=== PATIENT | female | born 1965 | race Two or more races ===

== ENCOUNTER 2016-07-04 20:29 | Inpatient (IN) | payer MEDICAID ==
[~2016-07-04] VITALS: Ht 154.9 cm; Wt 104.2 kg
[~2016-07-04 20:29] MED LIST: ENAL-3; LEVO100T8; METFORMIN 850 MG
[2016-07-04 21:34] LABS: Basophils # (auto) 0.1 uL; Basophils % (auto) 0.4 % (0.0-2.0); DEFINITIVE VIEW TRANSMISSION; Eosinophils # (auto) 0 uL; Eosinophils % (auto) 0.3 % (0.0-7.0); Hematocrit 44.1 % (36.0-46.0); Hemoglobin 13.9 g/dL (12.2-16.2); Lymphocytes # (auto) 1.6 uL; Lymphocytes % (auto) 11.1 % (10.0-50.0); Mean Corpuscular Hemoglobin 25.7 pg (28.0-32.0); Mean Corpuscular Hgb Conc. 31.6 g/dL (32.0-36.0); Mean Corpuscular Volume 81.5 fL (80.0-100.0); Mean Platelet Volume 9.3 fL (7.4-10.4); Monocytes # (auto) 0.5 uL; Monocytes % (auto) 3.5 % (0.0-12.0); Neutrophils # (auto) 12.2 uL; Neutrophils % (auto) 84.7 % (37.0-80.0); Platelet Count (auto) 306 10^3/uL (140-450); Red Cell Distribution Width 14.9 % (11.6-16.0); White Blood Cell 14.4 10^3/uL (4.4-10.8)
[2016-07-04 21:54] LABS: Albumin 3.8 g/dL (3.4-5.0)
[2016-07-04 21:57] LABS: Bilirubin, Total 0.2 mg/dL (0.2-1.0); Total Protein 8.7 g/dL (6.4-8.2)
[2016-07-04 22:13] LABS: Urine Bilirubin Negative (Negative); Urine Blood Negative /uL (Negative); Urine Color Yellow (Yellow); Urine Nitrite Negative (Negative); Urine RBC 3 /hpf (0 - 4); Urine Squamous Epithelial Cell FEW /hpf (<5); Urine Urobilinogen Normal (Negative)
[2016-07-04 22:14] LABS: Urine Glucose 4+ mg/dL (Normal); Urine Ketone 2+ (Negative)
[2016-07-05] MEDS ORDERED: ONDANSETRON HCL 4 MG/2 ML VIAL IV PRN (06:45)
[2016-07-05] MEDS ORDERED: ACETAMINOPHEN 325 MG TAB PO PRN (06:45)
[2016-07-05] MEDS ORDERED: DEXTROSE (50%) 50ML SYRG IV PRN (06:45)
[2016-07-05] MEDS ORDERED: MORPHINE SULF INJ 2 MG/ML SYRINGE 1ML IV PRN (06:45)
[2016-07-05] MEDS ORDERED: GASTROGRAFIN 120 ML SOL ONE (06:50)
[2016-07-05] MEDS: SODIUM CHLORIDE 0.9% 1,000 ML IV SCH ×2 (07:11→16:38)
[2016-07-05] MEDS ORDERED: ENOXAPARIN SOD 30 MG/0.3 ML SYRINGE SC SCH (10:00)
[2016-07-05] MEDS ORDERED: ENALAPRIL MALEATE 10 MG TAB PO SCH (10:00)
[2016-07-05] MEDS: LEVOTHYROXINE SODIUM 50 MCG TAB PO SCH (10:27)
[2016-07-05] MEDS: ENOXAPARIN SOD 40 MG/0.4 ML SYRINGE SC SCH (10:27)
[2016-07-05] MEDS: cefTRIAXone 1GM/50ML D5W 50 ML IV SCH (10:27)
[2016-07-05] MEDS: PANTOPRAZOLE SODIUM 40 MG/10 ML VIAL IV SCH (10:27)
[2016-07-05] MEDS: HYDROcodone-ACET 5/325MG TAB PO PRN ×2 (11:31→22:15)
[2016-07-05] MEDS: ACCU-CHEK COMFORT CURVE STRIP VI SCH ×3 (12:17→23:44)
[2016-07-05] MEDS: InsuLIN REG 1unit/0.01ml Soln (100units/ml) SC SCH ×3 (12:44→23:47)
[2016-07-05 13:16] VITALS: BP 158/87
[2016-07-05 16:52] VITALS: BP 161/87
[2016-07-05] MEDS: METOPROLOL TARTRATE 25 MG TAB PO SCH ×2 (18:57→22:15)
[2016-07-05] MEDS ORDERED: ENALAPRIL MALEATE 2.5 MG TAB PO SCH (19:00)
[2016-07-05 21:02] VITALS: BP 159/75
[2016-07-06] MEDS: SODIUM CHLORIDE 0.9% 1,000 ML IV SCH ×3 (02:32→23:52)
[2016-07-06 05:30] VITALS: BP 134/73
[2016-07-06] MEDS: ACCU-CHEK COMFORT CURVE STRIP VI SCH ×4 (05:40→23:51)
[2016-07-06] MEDS: InsuLIN REG 1unit/0.01ml Soln (100units/ml) SC SCH ×4 (05:42→23:39)
[2016-07-06 06:10] LABS: Basophils # (auto) 0 uL; Basophils % (auto) 0.3 % (0.0-2.0); DEFINITIVE VIEW TRANSMISSION; Eosinophils # (auto) 0.1 uL; Eosinophils % (auto) 1.3 % (0.0-7.0); Hematocrit 37.1 % (36.0-46.0); Hemoglobin 11.5 g/dL (12.2-16.2); Lymphocytes # (auto) 2.1 uL; Lymphocytes % (auto) 27.3 % (10.0-50.0); Mean Corpuscular Hemoglobin 25.3 pg (28.0-32.0); Mean Corpuscular Hgb Conc. 30.9 g/dL (32.0-36.0); Mean Corpuscular Volume 81.8 fL (80.0-100.0); Mean Platelet Volume 9.1 fL (7.4-10.4); Monocytes # (auto) 0.6 uL; Monocytes % (auto) 8.1 % (0.0-12.0); Neutrophils # (auto) 4.8 uL; Platelet Count (auto) 285 10^3/uL (140-450); Red Cell Distribution Width 15.1 % (11.6-16.0); White Blood Cell 7.7 10^3/uL (4.4-10.8)
[2016-07-06] MEDS: LEVOTHYROXINE SODIUM 50 MCG TAB PO SCH (06:25)
[2016-07-06 06:41] LABS: Potassium 3.2 mmol/L (3.5-5.1)
[2016-07-06 07:04] LABS: Albumin 2.9 g/dL (3.4-5.0); BUN/Creatinine Ratio 54.1; Bilirubin, Total 0.3 mg/dL (0.2-1.0); Calcium 7.5 mg/dL (8.5-10.1); Total Protein 6.8 g/dL (6.4-8.2)
[2016-07-06 08:48] VITALS: BP 152/67
[2016-07-06] MEDS: ENOXAPARIN SOD 40 MG/0.4 ML SYRINGE SC SCH (10:28)
[2016-07-06] MEDS: METOPROLOL TARTRATE 25 MG TAB PO SCH ×2 (10:28→21:42)
[2016-07-06] MEDS: ENALAPRIL MALEATE 10 MG TAB PO SCH (10:28)
[2016-07-06] MEDS: PANTOPRAZOLE SODIUM 40 MG/10 ML VIAL IV SCH (10:29)
[2016-07-06] MEDS: cefTRIAXone 1GM/50ML D5W 50 ML IV SCH (10:29)
[2016-07-06] MEDS ORDERED: POTASSIUM CHLORIDE 40 MEQ, LIDOCAINE 1% (LOCAL ANESTH.) 4 ML in SODIUM CHL 0.9% 250 ML IV ONE (11:30)
[2016-07-06] MEDS: metroNIDAZOLE 500 MG TAB PO SCH ×2 (14:15→21:43)
[2016-07-06 16:49] VITALS: BP 147/68
[2016-07-06 20:20] VITALS: BP 164/77
[2016-07-06] MEDS: HYDROcodone-ACET 5/325MG TAB PO PRN (21:54)
[2016-07-06 22:00] VITALS: BP 164/77
[2016-07-07] VITALS (7 sets, daily range): BP systolic 133–191; BP diastolic 60–88
[2016-07-07] MEDS: ACCU-CHEK COMFORT CURVE STRIP VI SCH ×3 (05:30→18:00)
[2016-07-07] MEDS: InsuLIN REG 1unit/0.01ml Soln (100units/ml) SC SCH ×3 (05:33→17:20)
[2016-07-07] MEDS: metroNIDAZOLE 500 MG TAB PO SCH ×2 (05:39→16:43)
[2016-07-07 06:13] LABS: Basophils # (auto) 0 uL; Basophils % (auto) 0.4 % (0.0-2.0); DEFINITIVE VIEW TRANSMISSION; Eosinophils # (auto) 0.1 uL; Eosinophils % (auto) 1.9 % (0.0-7.0); Hematocrit 37.5 % (36.0-46.0); Hemoglobin 11.8 g/dL (12.2-16.2); Lymphocytes # (auto) 2.2 uL; Lymphocytes % (auto) 48.2 % (10.0-50.0); Mean Corpuscular Hemoglobin 25.8 pg (28.0-32.0); Mean Corpuscular Hgb Conc. 31.6 g/dL (32.0-36.0); Mean Corpuscular Volume 81.7 fL (80.0-100.0); Mean Platelet Volume 8.9 fL (7.4-10.4); Monocytes # (auto) 0.4 uL; Monocytes % (auto) 8.9 % (0.0-12.0); Neutrophils # (auto) 1.9 uL; Neutrophils % (auto) 40.6 % (37.0-80.0); Platelet Count (auto) 239 10^3/uL (140-450); Red Cell Distribution Width 14.4 % (11.6-16.0); White Blood Cell 4.6 10^3/uL (4.4-10.8)
[2016-07-07 06:28] LABS: Potassium 3.3 mmol/L (3.5-5.1)
[2016-07-07 06:33] LABS: BUN/Creatinine Ratio 17.2; Calcium 7.5 mg/dL (8.5-10.1)
[2016-07-07 06:36] LABS: Bilirubin, Total 0.3 mg/dL (0.2-1.0); Total Protein 6.8 g/dL (6.4-8.2)
[2016-07-07] MEDS: LEVOTHYROXINE SODIUM 50 MCG TAB PO SCH (06:44)
[2016-07-07] MEDS: cefTRIAXone 1GM/50ML D5W 50 ML IV SCH (10:17)
[2016-07-07] MEDS: SODIUM CHLORIDE 0.9% 1,000 ML IV SCH (10:17)
[2016-07-07] MEDS: PANTOPRAZOLE SODIUM 40 MG/10 ML VIAL IV SCH (10:18)
[2016-07-07] MEDS: ENOXAPARIN SOD 40 MG/0.4 ML SYRINGE SC SCH (10:18)
[2016-07-07] MEDS: ENALAPRIL MALEATE 10 MG TAB PO SCH (10:19)
[2016-07-07] MEDS: METOPROLOL TARTRATE 25 MG TAB PO SCH ×2 (10:20→17:19)
[2016-07-07] MEDS ORDERED: POTASSIUM CHL 20 Meq TABLET PO ONE (16:15)
[2016-07-08] MEDS ORDERED: POTASSIUM CHL 20 Meq TABLET PO SCH (10:00)
== END 2016-07-07 18:30 | disposition home or self-care (01) ==
LOC: ER 20:34 → OVERFLOW 20:35 → TELE-E-ADS 07-05 08:27 → WEST WING 07-05 09:38
PROVIDERS: ADMIT Internal Medicine; ATTEND Internal Medicine
DX: K80.21 Calculus of gallbladder without cholecystitis with obstruction (principal); K76.0 Fatty (change of) liver, not elsewhere classified; E44.0 Moderate protein-calorie malnutrition; K43.6 Other and unspecified ventral hernia with obstruction, without gangrene; E11.65 Type 2 diabetes mellitus with hyperglycemia; Z68.41 Body mass index [BMI] 40.0-44.9, adult; E66.01 Morbid (severe) obesity due to excess calories; I10 Essential (primary) hypertension; K52.9 Noninfective gastroenteritis and colitis, unspecified; Z79.4 Long term (current) use of insulin
CPT/HCPCS: 36415; 74176; 74250; 80053; 81001; 82962; 83036; 85025; 87040; 87493; 93005; 94761; C9113; J0696; J1815; J2001; J2405

== ENCOUNTER 2016-10-29 11:56 | Inpatient (IN) | payer MEDICAID ==
[~2016-10-29] VITALS: Ht 154.9 cm; Wt 98.9 kg
[2016-10-29 13:33] LABS: Basophils # (auto) 0 uL; Basophils % (auto) 0.2 % (0.0-2.0); DEFINITIVE VIEW TRANSMISSION; Eosinophils # (auto) 0 uL; Eosinophils % (auto) 0.1 % (0.0-7.0); Hematocrit 42.9 % (36.0-46.0); Lymphocytes # (auto) 0.9 uL; Lymphocytes % (auto) 9.1 % (10.0-50.0); Mean Corpuscular Hemoglobin 26.5 pg (28.0-32.0); Mean Corpuscular Hgb Conc. 32.7 g/dL (32.0-36.0); Mean Platelet Volume 9.5 fL (7.4-10.4); Monocytes # (auto) 0.4 uL; Monocytes % (auto) 3.4 % (0.0-12.0); Neutrophils % (auto) 87.2 % (37.0-80.0); Platelet Count (auto) 303 10^3/uL (140-450); Red Cell Distribution Width 15.4 % (11.6-16.0); White Blood Cell 10.4 10^3/uL (4.4-10.8)
[2016-10-29 14:03] LABS: Albumin 3.9 g/dL (3.4-5.0); BUN/Creatinine Ratio 34.6; Bilirubin, Total 0.4 mg/dL (0.2-1.0); Calcium 8.6 mg/dL (8.5-10.1); Potassium 4.1 mmol/L (3.5-5.1); Total Protein 8.2 g/dL (6.4-8.2)
[2016-10-29] MEDS ORDERED: IOHEXOL 300 MG/ML 100ML BOTTLE IJ ONE (14:24)
[2016-10-29] MEDS ORDERED: SODIUM CHLORIDE 0.9% 500 ML IVB ONE (14:25)
[2016-10-29] MEDS ORDERED: MORPHINE SULFATE 4 MG/ML SYRG IV ONE (14:30)
[2016-10-29] MEDS ORDERED: ONDANSETRON HCL 4 MG/2 ML VIAL IV ONE (14:30)
[2016-10-29 14:43] LABS: Amylase 78 U/L (25-115)
[2016-10-29 16:26] LABS: Urine Bilirubin Negative (Negative); Urine Blood Negative /uL (Negative); Urine Color Yellow (Yellow); Urine Mucus FEW (None Seen); Urine Nitrite Negative (Negative); Urine RBC 2 /hpf (0 - 4); Urine Squamous Epithelial Cell FEW /hpf (<5); Urine Urobilinogen Normal (Negative)
[2016-10-29 16:37] LABS: Urine Glucose 3+ mg/dL (Normal); Urine Ketone 2+ (Negative)
[2016-10-29] MEDS ORDERED: DEXTROSE (50%) 50ML SYRG IV PRN (18:45)
[2016-10-29] MEDS ORDERED: MORPHINE SULF INJ 2 MG/ML SYRINGE 1ML IV PRN ×2 (18:45)
[2016-10-29] MEDS ORDERED: LORazepam 2MG/ML-1ML VIAL IV PRN (18:45)
[2016-10-29] MEDS ORDERED: cefTRIAXone 1GM/50ML D5W 50 ML IV ONE (18:45)
[2016-10-29] MEDS ORDERED: PROMETHAZINE HCL 25 MG/ML 1ML IV PRN (18:45)
[2016-10-29] MEDS ORDERED: NITROGLYCERIN 0.4 MG SL TAB SL PRN (18:45)
[2016-10-29 19:34] LABS: INR 0.94 (0.9-1.15); Partial Thromboplastin Time 29.4 sec (22.64-33.71); Prothrombin Time 10.2 sec (9.37-12.3)
[2016-10-29] MEDS: PANTOPRAZOLE SODIUM 40 MG/10 ML VIAL IV SCH (19:37)
[2016-10-29] MEDS: SODIUM CHLORIDE 0.9% 1,000 ML IV SCH (19:37)
[2016-10-29 20:00] VITALS: BP 137/82
[2016-10-29 21:02] VITALS: BP 137/82
[2016-10-29] MEDS ORDERED: GLIP-115 PO (22:18)
[2016-10-29] MEDS ORDERED: LEVO125T6 PO (22:18)
[2016-10-29] MEDS ORDERED: METF-370 PO (22:18)
[2016-10-29] MEDS ORDERED: ENAL20TA70 PO (22:18)
[2016-10-29] MEDS ORDERED: SITA100T7 PO (22:18)
[2016-10-29] MEDS: ACCU-CHEK COMFORT CURVE STRIP VI SCH (23:34)
[2016-10-29] MEDS: InsuLIN REG 1unit/0.01ml Soln (100units/ml) SC SCH (23:35)
[2016-10-29] MEDS: metroNIDAZOLE 500MG/100ML 100 ML IV SCH (23:36)
[2016-10-30 04:43] VITALS: BP 119/51
[2016-10-30] MEDS: ACCU-CHEK COMFORT CURVE STRIP VI SCH ×4 (05:44→23:55)
[2016-10-30] MEDS: InsuLIN REG 1unit/0.01ml Soln (100units/ml) SC SCH ×4 (05:44→23:55)
[2016-10-30] MEDS: SODIUM CHLORIDE 0.9% 1,000 ML IV SCH ×2 (05:44→14:38)
[2016-10-30] MEDS: metroNIDAZOLE 500MG/100ML 100 ML IV SCH ×3 (05:45→18:09)
[2016-10-30 07:40] LABS: Basophils # (auto) 0 uL; Basophils % (auto) 0.4 % (0.0-2.0); DEFINITIVE VIEW TRANSMISSION; Eosinophils # (auto) 0.1 uL; Eosinophils % (auto) 1.4 % (0.0-7.0); Hematocrit 34.8 % (36.0-46.0); Hemoglobin 11.6 g/dL (12.2-16.2); Lymphocytes # (auto) 1.8 uL; Mean Corpuscular Hemoglobin 26.9 pg (28.0-32.0); Mean Corpuscular Hgb Conc. 33.4 g/dL (32.0-36.0); Mean Corpuscular Volume 80.4 fL (80.0-100.0); Mean Platelet Volume 9.7 fL (7.4-10.4); Monocytes # (auto) 0.4 uL; Monocytes % (auto) 8.8 % (0.0-12.0); Neutrophils # (auto) 2.3 uL; Neutrophils % (auto) 49.4 % (37.0-80.0); Platelet Count (auto) 260 10^3/uL (140-450); Red Cell Distribution Width 14.9 % (11.6-16.0); White Blood Cell 4.6 10^3/uL (4.4-10.8)
[2016-10-30 07:57] LABS: BUN/Creatinine Ratio 36.4; Calcium 7.8 mg/dL (8.5-10.1); Potassium 3.5 mmol/L (3.5-5.1)
[2016-10-30 08:00] LABS: Bilirubin, Total 0.3 mg/dL (0.2-1.0); Total Protein 6.8 g/dL (6.4-8.2)
[2016-10-30 08:03] VITALS: BP 131/55
[2016-10-30] MEDS ORDERED: GASTROGRAFIN 120 ML SOL ONE (08:21)
[2016-10-30] MEDS: ENOXAPARIN SOD 40 MG/0.4 ML SYRINGE SC SCH (10:15)
[2016-10-30] MEDS: PANTOPRAZOLE SODIUM 40 MG/10 ML VIAL IV SCH (10:15)
[2016-10-30] MEDS: cefTRIAXone 1GM/50ML D5W 50 ML IV SCH (10:16)
[2016-10-30 13:00] VITALS: BP 156/69
[2016-10-30 16:45] VITALS: BP 150/82
[2016-10-30 21:30] VITALS: BP 139/61
[2016-10-31] MEDS: metroNIDAZOLE 500MG/100ML 100 ML IV SCH ×4 (00:03→18:11)
[2016-10-31] MEDS: SODIUM CHLORIDE 0.9% 1,000 ML IV SCH ×3 (00:04→21:14)
[2016-10-31 04:49] VITALS: BP 137/63
[2016-10-31] MEDS: InsuLIN REG 1unit/0.01ml Soln (100units/ml) SC SCH ×3 (05:57→18:12)
[2016-10-31] MEDS: ACCU-CHEK COMFORT CURVE STRIP VI SCH ×3 (05:57→18:12)
[2016-10-31 07:17] LABS: Albumin 3.1 g/dL (3.4-5.0); Bilirubin, Total 0.2 mg/dL (0.2-1.0); Calcium 8.4 mg/dL (8.5-10.1); Potassium 3.1 mmol/L (3.5-5.1); Total Protein 6.7 g/dL (6.4-8.2)
[2016-10-31 07:59] LABS: Basophils # (auto) 0 uL; Basophils % (auto) 0.4 % (0.0-2.0); DEFINITIVE VIEW TRANSMISSION; Eosinophils # (auto) 0.1 uL; Eosinophils % (auto) 1.7 % (0.0-7.0); Hematocrit 34.9 % (36.0-46.0); Hemoglobin 11.4 g/dL (12.2-16.2); Lymphocytes # (auto) 1.7 uL; Lymphocytes % (auto) 35.8 % (10.0-50.0); Mean Corpuscular Hemoglobin 26.6 pg (28.0-32.0); Mean Corpuscular Hgb Conc. 32.8 g/dL (32.0-36.0); Mean Corpuscular Volume 81.2 fL (80.0-100.0); Mean Platelet Volume 9.6 fL (7.4-10.4); Monocytes # (auto) 0.4 uL; Monocytes % (auto) 8.4 % (0.0-12.0); Neutrophils # (auto) 2.6 uL; Neutrophils % (auto) 53.7 % (37.0-80.0); Platelet Count (auto) 237 10^3/uL (140-450); Red Cell Distribution Width 14.8 % (11.6-16.0); White Blood Cell 4.8 10^3/uL (4.4-10.8)
[2016-10-31 09:00] VITALS: BP 150/71
[2016-10-31] MEDS: cefTRIAXone 1GM/50ML D5W 50 ML IV SCH (09:00)
[2016-10-31] MEDS ORDERED: POTASSIUM CHLORIDE 40 MEQ, LIDOCAINE 1% (LOCAL ANESTH.) 4 ML in SODIUM CHL 0.9% 250 ML IV ONE (09:30)
[2016-10-31] MEDS: ENOXAPARIN SOD 40 MG/0.4 ML SYRINGE SC SCH (10:00)
[2016-10-31] MEDS: PANTOPRAZOLE SODIUM 40 MG/10 ML VIAL IV SCH (10:00)
[2016-10-31] MEDS ORDERED: ceFAZolin 1GM/50ML D5W 50 ML IV ONE (10:38)
[2016-10-31] MEDS ORDERED: POVIDONE IODINE 10 % TOPICAL OINT 30GM TOP ONE (11:57)
[2016-10-31] MEDS ORDERED: fentaNYL CITRATE 100 MCG/2 ML VL ONE (12:52)
[2016-10-31] MEDS ORDERED: MEPERIDINE HCL (50 MG/ML) 1 ML VIAL ONE (12:52)
[2016-10-31] MEDS ORDERED: MIDAZOLAM HCL 1MG/1ML-2 ML VIAL ONE (12:52)
[2016-10-31] MEDS ORDERED: PHENYLEPHRINE HCL 10 MG/ML VL IV ONE (12:56)
[2016-10-31] MEDS ORDERED: PROPOFOL 10 MG/ML 20 ML IV ONE (13:21)
[2016-10-31] MEDS ORDERED: DEXAMETHASONE SOD PHOS 10MG/1ML VIAL INJ ONE (13:21)
[2016-10-31] MEDS ORDERED: ePHEDrine SULFATE 50 MG/ML AMP IV PRN (13:45)
[2016-10-31] MEDS ORDERED: ACCU-CHEK COMFORT CURVE STRIP VI ONE (13:45)
[2016-10-31] MEDS ORDERED: ONDANSETRON HCL 4 MG/2 ML VIAL IV ONE (13:45)
[2016-10-31] MEDS ORDERED: KETOROLAC TROMETH 30 MG/ML 1ML VIAL IV ONE (13:45)
[2016-10-31] MEDS ORDERED: LABETALOL HCL 5 MG/ML 4ML SYRINGE IV PRN (13:45)
[2016-10-31] MEDS ORDERED: HYDROmorphone HCL 2 MG/ML VL IV PRN (13:45)
[2016-10-31] MEDS ORDERED: MORPHINE SULF INJ 2 MG/ML SYRINGE 1ML IV PRN (13:45)
[2016-10-31] MEDS ORDERED: hydrALAZINE HCL 20 MG/ML VL IV PRN (13:45)
[2016-10-31] MEDS ORDERED: MIDAZOLAM HCL 1MG/1ML-2 ML VIAL IV PRN (13:45)
[2016-10-31] MEDS ORDERED: NEOSTIGMINE 1 MG/ML INJ (10mg/10ML VIAL) ONE (13:51)
[2016-10-31] MEDS ORDERED: GLYCOPYRROLATE 0.2 MG/ML 1ML VIAL ONE (13:52)
[2016-10-31] MEDS ORDERED: KETOROLAC TROMETH 30 MG/ML 1ML VIAL ONE (14:57)
[2016-10-31 15:40] VITALS: BP 151/73
[2016-10-31 17:07] VITALS: BP 160/90
[2016-10-31 21:55] VITALS: BP 147/69
[2016-11-01 05:00] VITALS: BP 131/61
[2016-11-01 05:59] LABS: Basophils # (auto) 0 uL; Basophils % (auto) 0.2 % (0.0-2.0); DEFINITIVE Y; Eosinophils # (auto) 0 uL; Hematocrit 36.4 % (36.0-46.0); Lymphocytes # (auto) 1.1 uL; Lymphocytes % (auto) 12.8 % (10.0-50.0); Mean Corpuscular Hemoglobin 26.6 pg (28.0-32.0); Mean Corpuscular Hgb Conc. 33.1 g/dL (32.0-36.0); Mean Corpuscular Volume 80.3 fL (80.0-100.0); Mean Platelet Volume 9.1 fL (7.4-10.4); Monocytes # (auto) 0.6 uL; Monocytes % (auto) 6.4 % (0.0-12.0); Neutrophils # (auto) 7.2 uL; Neutrophils % (auto) 80.6 % (37.0-80.0); Platelet Count (auto) 278 10^3/uL (140-450); White Blood Cell 8.9 10^3/uL (4.4-10.8)
[2016-11-01] MEDS: ACCU-CHEK COMFORT CURVE STRIP VI SCH ×2 (06:26)
[2016-11-01] MEDS: metroNIDAZOLE 500MG/100ML 100 ML IV SCH ×2 (06:26)
[2016-11-01] MEDS: InsuLIN REG 1unit/0.01ml Soln (100units/ml) SC SCH ×2 (06:26)
[2016-11-01] MEDS: SODIUM CHLORIDE 0.9% 1,000 ML IV SCH (06:27)
[2016-11-01 06:30] LABS: Albumin 3.4 g/dL (3.4-5.0); Calcium 8.1 mg/dL (8.5-10.1); Potassium 3.3 mmol/L (3.5-5.1)
[2016-11-01 06:32] LABS: BUN/Creatinine Ratio 24.3
[2016-11-01 06:35] LABS: Bilirubin, Total 0.3 mg/dL (0.2-1.0); Total Protein 7.3 g/dL (6.4-8.2)
[2016-11-01 08:12] VITALS: BP 141/74
[2016-11-01] MEDS ORDERED: POTASSIUM CHLORIDE 40 MEQ, LIDOCAINE 1% (LOCAL ANESTH.) 4 ML in SODIUM CHL 0.9% 250 ML IV ONE (08:30)
[2016-11-01] MEDS: PANTOPRAZOLE SODIUM 40 MG/10 ML VIAL IV SCH (10:20)
[2016-11-01] MEDS: ENOXAPARIN SOD 40 MG/0.4 ML SYRINGE SC SCH (10:20)
[2016-11-01 12:24] VITALS: BP 153/65
== END 2016-11-01 15:15 | disposition home or self-care (01) | DRG 263 ==
LOC: ER 11:56 → TELE 11:57 → TELE-WESTW 19:56
PROVIDERS: ADMIT Internal Medicine; ATTEND Internal Medicine
PROC: 0FT44ZZ Resection of Gallbladder, Percutaneous Endoscopic Approach (ICD-10-PCS; principal; 2016-10-31 13:05)
DX: K80.10 Calculus of gallbladder with chronic cholecystitis without obstruction (principal); K56.60 Unspecified intestinal obstruction; E11.65 Type 2 diabetes mellitus with hyperglycemia; Z68.41 Body mass index [BMI] 40.0-44.9, adult; E66.01 Morbid (severe) obesity due to excess calories; I10 Essential (primary) hypertension; E03.9 Hypothyroidism, unspecified; E87.6 Hypokalemia; K43.9 Ventral hernia without obstruction or gangrene; Z83.3 Family history of diabetes mellitus; Z98.51 Tubal ligation status
CPT/HCPCS: 36415; 71010; 74177; 74250; 76705; 80053; 81001; 82150; 82247; 82962; 83036; 83690; 85025; 85610; 85652; 85730; 86141; 86850; 86870; 86880; 86900; 86901; 86905; 86906; 86971; 93005; 94761; 96361; 96374; 96375; C9113; J0690; J0696; J1100; J1815; J1885; J2001; J2250; J2405; J2704; J3490

== ENCOUNTER 2017-10-23 21:04 | Inpatient (IN) | payer MEDICAID ==
[~2017-10-23] VITALS: Ht 154.9 cm; Wt 99.7 kg
[~2017-10-23 21:04] MED LIST changes: -ENAL-3; +ENAL20TA70 PO; +GLIP-115 PO; -LEVO100T8; +LEVO125T7 PO; +METF-370 PO; -METFORMIN 850 MG; +SITA100T7 PO
[2017-10-23] MEDS ORDERED: cloNIDine HCL 0.1 MG TAB ONE (21:24)
[2017-10-23] MEDS ORDERED: cloNIDine HCL 0.1 MG TAB PO ONE (21:30)
[2017-10-23 21:54] LABS: Basophils # (auto) 0.1 uL; Eosinophils # (auto) 0 uL; Monocytes # (auto) 0.4 uL; Neutrophils % (auto) 87.4 % (37.0-80.0); Red Cell Distribution Width 15.4 % (11.8-14.3)
[2017-10-23 21:56] LABS: Basophils % (auto) 0.4 % (0.0-2.0); Hematocrit 47.1 % (36.0-46.0); Hemoglobin 15.3 g/dL (12.2-16.2); Lymphocytes # (auto) 1.3 uL; Lymphocytes % (auto) 9.3 % (10.0-50.0); Mean Corpuscular Hemoglobin 25.9 pg (28.0-32.0); Mean Corpuscular Hgb Conc. 32.5 g/dL (32.0-36.0); Mean Corpuscular Volume 79.8 fL (80.0-100.0); Monocytes % (auto) 2.9 % (0.0-12.0); Neutrophils # (auto) 11.8 uL; Platelet Count (auto) 305 10^3/uL (140-450); White Blood Cell 13.5 10^3/uL (4.4-10.8)
[2017-10-23 21:58] LABS: Alanine Aminotransferase 38 U/L (13-56); Amylase 77 U/L (25-115); Anion Gap 14 (5-15); Aspartate Aminotransferase 20 U/L (15-37); BUN/Creatinine Ratio 17.9; Blood Urea Nitrogen 19 mg/dL (7-18); Calcium 9.5 mg/dL (8.5-10.1); Carbon Dioxide 28 mmol/L (21-32); Chloride 91 mmol/L (98-107); GFR African American 69 mL/min; GFR Non-African American 57 mL/min; Glucose 396 mg/dL (74-106); Lipase 118 U/L (73-393); Potassium 4.4 mmol/L (3.5-5.1); Sodium 133 mmol/L (136-145)
[2017-10-23 22:03] LABS: Alkaline Phosphatase 142 U/L (45-117); Bilirubin, Total 0.6 mg/dL (0.2-1.0); Total Protein 9.6 g/dL (6.4-8.2)
[2017-10-23] MEDS ORDERED: NALBUPHINE HCL 10 MG/1ml INJECTION IV ONE (23:00)
[2017-10-23] MEDS ORDERED: ONDANSETRON HCL 4 MG/2 ML VIAL IV ONE (23:00)
[2017-10-24] MEDS ORDERED: metroNIDAZOLE 500MG/100ML 100 ML IV ONE (04:15)
[2017-10-24] MEDS ORDERED: cefTRIAXone 1GM/10ml IVPUSH 10 ML IV ONE (04:15)
[2017-10-24] MEDS ORDERED: InsuLIN REG 1unit/0.01ml Soln (100units/ml) IV ONE (04:15)
[2017-10-24] MEDS ORDERED: SODIUM CHLORIDE 0.9% 1,000 ML IV ONE (04:15)
[2017-10-24] MEDS ORDERED: SODIUM CHLORIDE 0.9% 500 ML IV ONE (05:30)
[2017-10-24] MEDS ORDERED: ACETAMINOPHEN 325 MG TAB PO PRN (05:30)
[2017-10-24] MEDS ORDERED: DEXTROSE (50%) 50ML SYRG IV PRN ×2 (05:30→12:30)
[2017-10-24] MEDS ORDERED: HYDROcodone-ACET 5/325MG TAB PO PRN (05:30)
[2017-10-24] MEDS ORDERED: MORPHINE SULFATE 8mg/ml INJ SDV IV PRN ×2 (05:30)
[2017-10-24] MEDS ORDERED: SODIUM CHLORIDE 0.9% 1,000 ML IV SCH ×2 (05:30→10:00)
[2017-10-24] MEDS ORDERED: ONDANSETRON HCL 4 MG/2 ML VIAL IV PRN (05:30)
[2017-10-24] MEDS ORDERED: TEMAZEPAM 15 MG CAP PO PRN (05:30)
[2017-10-24] MEDS ORDERED: NITROGLYCERIN 0.4 MG SL TAB SL PRN (05:30)
[2017-10-24] MEDS ORDERED: LEVOTHYROXINE SODIUM 50 MCG TAB PO SCH (07:00)
[2017-10-24] MEDS: ACCU-CHEK COMFORT CURVE STRIP VI SCH ×4 (08:13→20:23)
[2017-10-24] MEDS: InsuLIN REG 1unit/0.01ml Soln (100units/ml) SC SCH ×4 (08:18→20:24)
[2017-10-24 09:00] VITALS: BP 149/85
[2017-10-24] MEDS ORDERED: ENALAPRIL MALEATE 10 MG TAB PO SCH (10:00)
[2017-10-24] MEDS ORDERED: ENOXAPARIN SOD 30 MG/0.3 ML SYRINGE SC SCH (10:00)
[2017-10-24] MEDS: PANTOPRAZOLE 40 MG/10 ML VIAL IV SCH (10:06)
[2017-10-24] MEDS: ENOXAPARIN SOD 40 MG/0.4 ML SYRINGE SC SCH ×2 (10:07→21:06)
[2017-10-24] MEDS ORDERED: GASTROGRAFIN 120 ML SOL ONE (10:40)
[2017-10-24] MEDS: SODIUM CHLORIDE 0.9% 1,000 ML IV SCH ×2 (12:30→21:35)
[2017-10-24] MEDS ORDERED: INSULIN LANTUS (GLARGINE) 1 /0.01ml (100units/ml) SC ONE (12:30)
[2017-10-24 13:00] VITALS: BP 154/84
[2017-10-24] MEDS ORDERED: hydrALAZINE HCL 20 MG/ML VL IV PRN (14:45)
[2017-10-24] MEDS ORDERED: MEPERIDINE HCL (25 MG/ML) 1ML VIAL IV PRN (14:45)
[2017-10-24] MEDS ORDERED: MORPHINE SULF INJ 2 MG/ML SYRINGE 1ML IV PRN (16:15)
[2017-10-24 16:59] VITALS: BP 141/59
[2017-10-24 22:18] VITALS: BP 145/57
[2017-10-25] MEDS: ACCU-CHEK COMFORT CURVE STRIP VI SCH ×4 (00:14→12:19)
[2017-10-25] MEDS: InsuLIN REG 1unit/0.01ml Soln (100units/ml) SC SCH ×4 (00:14→12:20)
[2017-10-25 02:06] LABS: Urine Bacteria FEW /hpf (None Seen); Urine Blood Negative /uL (Negative); Urine Budding Yeast FEW /hpf (None Seen); Urine Mucus FEW (None Seen); Urine Specific Gravity 1.041 (1.001-1.035); Urine WBC 1 /hpf (0 - 5)
[2017-10-25 02:19] LABS: Alcohol, Urine < 3.0 mg/dL (0-5); Amphetamine Screen, Urine NEGATIVE (NEGATIVE); Barbiturate Scree,Urine NEGATIVE (NEGATIVE); Benzodiazephine Screen, Urine NEGATIVE (NEGATIVE); Cannabinoid Screen, Urine POSITIVE (NEGATIVE); Cocaine Screen, Urine NEGATIVE (NEGATIVE); Opiate Scree,Urine NEGATIVE (NEGATIVE); Phencyclidine Screen, Urine NEGATIVE (NEGATIVE)
[2017-10-25] MEDS: SODIUM CHLORIDE 0.9% 1,000 ML IV SCH ×2 (04:34→12:30)
[2017-10-25 05:38] VITALS: BP 153/71
[2017-10-25 06:00] LABS: Basophils # (auto) 0 uL; Basophils % (auto) 0.4 % (0.0-2.0); Eosinophils # (auto) 0 uL; Lymphocytes # (auto) 1.4 uL; Red Cell Distribution Width 15.4 % (11.8-14.3)
[2017-10-25 06:03] LABS: Eosinophils % (auto) 0.3 % (0.0-7.0); Hematocrit 39.6 % (36.0-46.0); Hemoglobin 12.9 g/dL (12.2-16.2); Lymphocytes % (auto) 19.2 % (10.0-50.0); Mean Corpuscular Hemoglobin 26.5 pg (28.0-32.0); Mean Corpuscular Hgb Conc. 32.6 g/dL (32.0-36.0); Mean Corpuscular Volume 81.4 fL (80.0-100.0); Monocytes # (auto) 0.7 uL; Neutrophils % (auto) 70.1 % (37.0-80.0); Nucleated Red Blood Cells % 0.1 %; Platelet Count (auto) 257 10^3/uL (140-450); Red Blood Cells 4.87 10^6/uL (4.0-5.20); White Blood Cell 7.2 10^3/uL (4.4-10.8)
[2017-10-25 06:07] LABS: Albumin 3.3 g/dL (3.4-5.0); Calcium 8.2 mg/dL (8.5-10.1); Potassium 4.6 mmol/L (3.5-5.1)
[2017-10-25 06:11] LABS: Bilirubin, Total 0.3 mg/dL (0.2-1.0); Total Protein 7.7 g/dL (6.4-8.2)
[2017-10-25 06:12] LABS: BUN/Creatinine Ratio 47.2
[2017-10-25] MEDS ORDERED: INSULIN LANTUS (GLARGINE) 1 /0.01ml (100units/ml) SC SCH (07:00)
[2017-10-25 08:12] LABS: INR 0.94 (0.9-1.15); Partial Thromboplastin Time 27.2 sec (23.78-33.04); Prothrombin Time 10.1 sec (9.27-12.13)
[2017-10-25 09:00] VITALS: BP 158/71
[2017-10-25] MEDS ORDERED: glipiZIDE 5 MG TAB PO ONE (09:15)
[2017-10-25] MEDS: PANTOPRAZOLE 40 MG/10 ML VIAL IV SCH (09:59)
[2017-10-25] MEDS: ENOXAPARIN SOD 40 MG/0.4 ML SYRINGE SC SCH (09:59)
[2017-10-25] MEDS ORDERED: ENALAPRIL MALEATE 10 MG TAB PO SCH (10:00)
[2017-10-25 13:00] VITALS: BP 162/70
[2017-10-25 13:19] VITALS: BP 158/71
[2017-10-25] MEDS ORDERED: glipiZIDE 5 MG TAB PO SCH (18:00)
[2017-10-25] MEDS ORDERED: metFORMIN HYDROCHLORIDE 850 MG TAB PO SCH (18:00)
== END 2017-10-25 13:52 | disposition home or self-care (01) | DRG 254 ==
LOC: ER 21:04 → TELE 21:05 → TELE-WESTW 10-24 09:01 → WEST WING 10-24 15:44
PROVIDERS: ADMIT Nurse Practitioner; ATTEND Internal Medicine
DX: K42.0 Umbilical hernia with obstruction, without gangrene (principal); E11.10 Type 2 diabetes mellitus with ketoacidosis without coma; R65.10 Systemic inflammatory response syndrome (SIRS) of non-infectious origin without acute organ dysfunction; Z68.41 Body mass index [BMI] 40.0-44.9, adult; E87.1 Hypo-osmolality and hyponatremia; K76.0 Fatty (change of) liver, not elsewhere classified; E66.01 Morbid (severe) obesity due to excess calories; E86.0 Dehydration; D72.829 Elevated white blood cell count, unspecified; E03.9 Hypothyroidism, unspecified; K43.9 Ventral hernia without obstruction or gangrene; G47.00 Insomnia, unspecified; I10 Essential (primary) hypertension; Z90.49 Acquired absence of other specified parts of digestive tract; Z98.51 Tubal ligation status; Z79.899 Other long term (current) drug therapy; Z79.84 Long term (current) use of oral hypoglycemic drugs; Z83.3 Family history of diabetes mellitus
CPT/HCPCS: 36415; 71045; 74176; 74250; 80053; 80307; 81001; 82010; 82150; 82962; 83036; 83690; 83880; 84484; 85025; 85610; 85730; 93005; 94761; 96365; 96375; C9113; J1815; J2405; J3490

== ENCOUNTER 2017-12-25 17:38 | Emergency (ER) | payer MEDICAID, OTHER ==
[~2017-12-25] VITALS: Ht 154.9 cm; Wt 99.3 kg
[2017-12-25 18:55] LABS: Urine Bacteria MOD /hpf (None Seen); Urine Blood 3+ /uL (Negative); Urine Mucus FEW (None Seen); Urine WBC 130 /hpf (0 - 5)
[2017-12-25 19:39] VITALS: BP 161/81
== END 2017-12-25 21:03 | disposition home or self-care (01) ==
LOC: ER 17:43
DX: N39.0 Urinary tract infection, site not specified (principal); E11.9 Type 2 diabetes mellitus without complications; I10 Essential (primary) hypertension; E07.9 Disorder of thyroid, unspecified; Z90.49 Acquired absence of other specified parts of digestive tract; Z79.84 Long term (current) use of oral hypoglycemic drugs; Z79.899 Other long term (current) drug therapy
CPT/HCPCS: 81001

== ENCOUNTER 2019-02-12 11:04 | Inpatient (IN) | payer MEDICAID ==
[~2019-02-12] VITALS: Ht 154.9 cm; Wt 92.0 kg
[~2019-02-12 11:04] MED LIST changes: +ENAL20TA PO; -ENAL20TA70 PO; -GLIP-115 PO; +GLIP5TAB12 PO
[2019-02-12] MEDS ORDERED: SODIUM CHLORIDE 0.9% 1,000 ML IV ONE (12:07)
[2019-02-12] MEDS ORDERED: HYDROmorphone HCL 2 MG/ML VL IV ONE (12:15)
[2019-02-12] MEDS ORDERED: METOCLOPRAMIDE HCL 5MG/ml INJ 2ml VIAL IV ONE (12:15)
[2019-02-12] MEDS ORDERED: OMNIPAQUE ORAL SOLN 500ml 12mg/ml PO ONE (12:16)
[2019-02-12 12:34] LABS: Basophils # (auto) 0.1 uL; Basophils % (auto) 1.1 % (0.0-2.0); Eosinophils # (auto) 0 uL; Eosinophils % (auto) 0.4 % (0.0-7.0); Hematocrit 43.7 % (36.0-46.0); Hemoglobin 14.8 g/dL (12.2-16.2); Lymphocytes # (auto) 0.9 uL; Lymphocytes % (auto) 16.3 % (10.0-50.0); Mean Corpuscular Hemoglobin 27.2 pg (28.0-32.0); Mean Corpuscular Hgb Conc. 33.8 g/dL (32.0-36.0); Mean Corpuscular Volume 80.3 fL (80.0-100.0); Monocytes # (auto) 0.4 uL; Monocytes % (auto) 6.6 % (0.0-12.0); Neutrophils % (auto) 75.6 % (37.0-80.0); Nucleated Red Blood Cells % 0.1 %; Platelet Count (auto) 204 10^3/uL (140-450); Red Blood Cells 5.44 10^6/uL (4.0-5.20); Red Cell Distribution Width 14.5 % (11.8-14.3); White Blood Cell 5.4 10^3/uL (4.4-10.8)
[2019-02-12 12:48] LABS: INR 0.95 (0.9-1.15); Partial Thromboplastin Time 28.2 sec (23.64-32.05)
[2019-02-12 12:52] LABS: Albumin 3.8 g/dL (3.4-5.0); Magnesium 2.5 mg/dL (1.6-2.6); Potassium 3.7 mmol/L (3.5-5.1)
[2019-02-12 12:56] LABS: BUN/Creatinine Ratio 20.7; Bilirubin, Total 0.6 mg/dL (0.2-1.0); Total Protein 8.6 g/dL (6.4-8.2)
[2019-02-12] MEDS ORDERED: IOHEXOL 300 MG/ML 100ML BOTTLE IJ ONE (13:12)
[2019-02-12 15:35] LABS: Urine WBC None Seen /hpf (0 - 5)
[2019-02-12 16:12] LABS: Urine Bacteria NONE SEEN /hpf (None Seen); Urine Blood Negative /uL (Negative)
[2019-02-12 16:16] LABS: Urine Specific Gravity 1.064 (1.001-1.035)
[2019-02-12] MEDS ORDERED: ONDANSETRON HCL 4 MG/2 ML VIAL IV PRN (16:30)
[2019-02-12] MEDS ORDERED: MORPHINE SULF INJ 2 MG/ML SYRINGE 1ML IV PRN (16:30)
[2019-02-12] MEDS ORDERED: NITROGLYCERIN 0.4 MG SL TAB SL PRN (16:30)
[2019-02-12] MEDS: MORPHINE SULF INJ 2 MG/ML SYRINGE 1ML IV PRN ×2 (16:52→22:58)
--- NOTE | 2019-02-12 17:30 | NUR ---
MS admit from ER OSWALDO DAVIS admitted to [facility] after SBAR received. Patient oriented to Sheridan Holder RN, unit, room, bed, and unit policies regarding patient care and visiting hours. Patient weighed by bed scale and encouraged to call if she needs something. All questions and concerns addressed, patient verbalized understanding. Note: Patient requested for an electric fan. Electric fan provided.
[2019-02-12 17:47] VITALS: BP 161/78
[2019-02-12 17:51] VITALS: BP 161/78
[2019-02-12] MEDS: hydrALAZINE HCL 20 MG/ML VL IV SCH ×2 (18:00→23:38)
--- NOTE | 2019-02-12 18:00 | NUR ---
JULIÁN Dallas inserted NG Tube 16 Fr on right nares. Chest portable ordered per protocol.
--- NOTE | 2019-02-12 18:10 | NUR ---
Patient refused Hydralazine Inj. Patient and family stated she was told at the ER that she cannot have blood pressure medications. Addendum: 02/12/19 at 1843 by Sheridan Henriquez RN for 48 hours
[2019-02-12] MEDS ORDERED: ERGO2000 PO (18:14)
[2019-02-12] MEDS ORDERED: ALOG1TAB2 PO (18:14)
--- NOTE | 2019-02-12 18:23 | NUR ---
Zofran Inj given for nausea.
--- NOTE | 2019-02-12 18:57 | NUR ---
Called Kennedy Carroll that patient has orders for hernia repair tomorrow as per Dr. Arrington.
--- NOTE | 2019-02-12 18:57 | NUR ---
Called Kennedy Carroll that patient has orders for Left Heart Cath tomorrow with Dr. Yousif. Addendum: 02/12/19 at 1858 by Sheridan Henriquez RN WRONG PATIENT.
--- NOTE | 2019-02-12 19:10 | NUR ---
Patient on NPO, scheduled for hernia repair tomorrow. Patient stated she will sign the consents when the surgeon talks to her before surgery tomorrow.
--- NOTE | 2019-02-12 19:10 | NUR ---
Endorsed to operation shift supervisor RN that patient has orders for NGT low continuous suction.
--- NOTE | 2019-02-12 19:20 | NUR ---
Opening Shift Note Assumed care of patient, awake and alert. No S/S of distress/SOB or pain. Instructed on POC and to call for assist PRN, will continue to monitor for changes Q1hr and PRN.
[2019-02-12 20:00] VITALS: BP 163/81
[2019-02-12] MEDS: FAMOTIDINE (10MG/ML) 2ML VL IV SCH (21:05)
--- NOTE | 2019-02-12 21:09 | NUR ---
Nasogastric tube verification Patient educated on need for NG tube. All questions addressed. placement verified by aspiration of stomach contents, auscultation and chest xray. Ng tube measuring at 57 cm in right nare.patient placed on Low continuous suction per MD orders.
[2019-02-12 21:33] VITALS: BP 163/81
--- NOTE | 2019-02-13 04:20 | NUR ---
CHLORHEXIDINE GLUCONATE CLOTH GIVEN TO PATIENT. PATIENT REQUESTED TO DO IT HERSELF. PER PATIENT" I HAVE DONE THIS BEFORE" PATIENT EDUCATED ON THE USE OF CLOTHS AND ALL QUESTIONS AND CONCERNS ANSWERED.
[2019-02-13 05:11] LABS: Basophils # (auto) 0 uL; Basophils % (auto) 0.3 % (0.0-2.0); Eosinophils # (auto) 0 uL; Eosinophils % (auto) 0.2 % (0.0-7.0); Hematocrit 41.3 % (36.0-46.0); Hemoglobin 14.3 g/dL (12.2-16.2); Lymphocytes # (auto) 1.3 uL; Lymphocytes % (auto) 19.9 % (10.0-50.0); Mean Corpuscular Hemoglobin 27.7 pg (28.0-32.0); Mean Corpuscular Hgb Conc. 34.6 g/dL (32.0-36.0); Mean Corpuscular Volume 80.2 fL (80.0-100.0); Monocytes # (auto) 0.7 uL; Neutrophils # (auto) 4.6 uL; Neutrophils % (auto) 69.6 % (37.0-80.0); Nucleated Red Blood Cells % 0.1 %; Platelet Count (auto) 220 10^3/uL (140-450); Red Blood Cells 5.15 10^6/uL (4.0-5.20); Red Cell Distribution Width 14.7 % (11.8-14.3); White Blood Cell 6.6 10^3/uL (4.4-10.8)
[2019-02-13 05:17] VITALS: BP 159/80
[2019-02-13] MEDS: hydrALAZINE HCL 20 MG/ML VL IV SCH ×2 (05:37→12:00)
[2019-02-13 05:39] LABS: Albumin 3.6 g/dL (3.4-5.0); BUN/Creatinine Ratio 28.3; Calcium 8.2 mg/dL (8.5-10.1); Potassium 3.5 mmol/L (3.5-5.1)
[2019-02-13 05:42] LABS: Bilirubin, Total 0.6 mg/dL (0.2-1.0)
[2019-02-13 06:09] LABS: INR 0.94 (0.9-1.15)
--- NOTE | 2019-02-13 07:30 | NUR ---
REPORT GIVEN TO LIDA GALLEGO
[2019-02-13] MEDS: MORPHINE SULF INJ 2 MG/ML SYRINGE 1ML IV PRN ×3 (08:26→21:02)
--- NOTE | 2019-02-13 08:30 | NUR ---
SURGERY PATIENT WAS TAKEN DOWN IN BED FOR SURGERY FOR PERIUMBILICAL HERNIA. NO PERSONAL BELONGINGS WENT WITH PATIENT. CONSENTS NOT SIGNED UP ON FLOOR BECAUSE PATIENT REFUSED. SHE SAID SHE WOULD SIGN THEM DOWN IN PRE-OP. NURSE IN PRE-OP WAS NOTIFIED. IV PATENT AND RUNNING NS. SHE WAS DISCONNECTED FROM IV AND SUCTION TO BE TAKEN DOWN FOR PROCEDURE.
[2019-02-13 09:00] VITALS: BP 150/78
[2019-02-13] MEDS: FAMOTIDINE (10MG/ML) 2ML VL IV SCH ×2 (10:00→20:50)
[2019-02-13] MEDS ORDERED: ceFAZolin 1GM/50ML 50 ML IV ONE (10:07)
[2019-02-13] MEDS ORDERED: LIDOCAINE 1% (LOCAL ANESTH.) PF 5ml SDV ONE (11:14)
[2019-02-13] MEDS ORDERED: SUCCINYLCHOLINE CHLORIDE 20 MG/ML 10ML VIAL IV ONE (11:14)
[2019-02-13] MEDS ORDERED: ONDANSETRON HCL 4 MG/2 ML VIAL IV PRN (11:30)
[2019-02-13] MEDS ORDERED: NALOXONE HCL 0.4 MG/ML VIAL IV PRN (11:30)
[2019-02-13] MEDS ORDERED: HYDROmorphone HCL 2 MG/ML VL IV PRN ×2 (11:30)
[2019-02-13] MEDS ORDERED: MIDAZOLAM HCL 1MG/1ML-2 ML VIAL ONE (11:33)
[2019-02-13] MEDS ORDERED: ROCURONIUM 10MG/ML 10ML VIAL IV ONE (11:40)
[2019-02-13] MEDS ORDERED: PROPOFOL 10 MG/ML 20 ML IV ONE (11:40)
[2019-02-13] MEDS ORDERED: fentaNYL CITRATE 100 MCG/2 ML VL ONE (11:48)
[2019-02-13] MEDS ORDERED: STERILE WATER 10 ML ONE (11:50)
[2019-02-13] MEDS ORDERED: PHENYLEPHRINE HCL 10 MG/ML VL ONE (11:51)
[2019-02-13] MEDS ORDERED: ceFAZolin 1GM VL ONE (12:33)
[2019-02-13 12:45] VITALS: BP 150/78
[2019-02-13] MEDS ORDERED: NEOSTIGMINE 1 MG/ML INJ (10mg/10ML VIAL) ONE (13:04)
[2019-02-13] MEDS ORDERED: GLYCOPYRROLATE 0.2 MG/ML 1ML VIAL ONE (13:04)
--- NOTE | 2019-02-13 14:19 | NUR ---
Returned to floor Patient returned to floor in bed. Alert and oriented. Abdominal dressing is CDI, midline, abdominal binder on.
[2019-02-13 14:52] VITALS: BP 181/82
[2019-02-13] MEDS ORDERED: hydrALAZINE HCL 20 MG/ML VL IV PRN (17:45)
[2019-02-13] MEDS ORDERED: DEXTROSE (50%) 50ML SYRG IV PRN (18:15)
[2019-02-13] MEDS: ACCU-CHEK COMFORT CURVE STRIP VI SCH (21:02)
[2019-02-13] MEDS: InsuLIN REG 1unit/0.01ml Soln (100units/ml) SC SCH (21:03)
[2019-02-13 22:00] VITALS: BP 99/58
[2019-02-13 22:50] VITALS: BP 148/78
[2019-02-14 05:00] VITALS: BP 153/81
[2019-02-14] MEDS: LEVOTHYROXINE SODIUM 50 MCG TAB PO SCH ×2 (05:28→07:00)
[2019-02-14] MEDS: InsuLIN REG 1unit/0.01ml Soln (100units/ml) SC SCH ×4 (06:46→22:10)
[2019-02-14] MEDS: ACCU-CHEK COMFORT CURVE STRIP VI SCH ×4 (06:46→22:10)
--- NOTE | 2019-02-14 07:29 | NUR ---
REPORT GIVEN TO DAY SHIFT RN
[2019-02-14 07:36] LABS: Potassium 3.6 mmol/L (3.5-5.1)
[2019-02-14 08:50] LABS: Basophils # (auto) 0 uL; Basophils % (auto) 0.3 % (0.0-2.0); Eosinophils # (auto) 0 uL; Eosinophils % (auto) 0.4 % (0.0-7.0); Hematocrit 42.1 % (36.0-46.0); Hemoglobin 14.3 g/dL (12.2-16.2); Lymphocytes # (auto) 1.4 uL; Lymphocytes % (auto) 19.6 % (10.0-50.0); Mean Corpuscular Hemoglobin 28.1 pg (28.0-32.0); Mean Corpuscular Hgb Conc. 33.9 g/dL (32.0-36.0); Mean Corpuscular Volume 82.8 fL (80.0-100.0); Monocytes # (auto) 0.8 uL; Monocytes % (auto) 10.5 % (0.0-12.0); Neutrophils % (auto) 69.2 % (37.0-80.0); Platelet Count (auto) 236 10^3/uL (140-450); Red Blood Cells 5.08 10^6/uL (4.0-5.20); White Blood Cell 7.3 10^3/uL (4.4-10.8)
[2019-02-14 09:00] VITALS: BP 165/80
[2019-02-14] MEDS: ENALAPRIL MALEATE 10 MG TAB PO SCH (09:51)
[2019-02-14] MEDS: amLODIPine BESYLATE 5 MG TAB PO SCH (09:53)
[2019-02-14] MEDS: metroNIDAZOLE 500 MG TAB PO SCH ×2 (10:00→20:30)
--- NOTE | 2019-02-14 10:00 | NUR ---
Pain/temp. Patient c/o headache. Patient's temp is 100.1. She had no order for anything other than Morphine. Contacted Dr. Elaine for an order for Tylenol. She ordered PRN Tylenol for temp over 100.4 but said it was ok to give the Tylenol right now. She also ordered to D/C the West catheter and ordered blood cultures due to the increased temp.
[2019-02-14] MEDS: ENOXAPARIN SOD 40 MG/0.4 ML SYRINGE SC SCH (10:02)
[2019-02-14] MEDS: FAMOTIDINE (10MG/ML) 2ML VL IV SCH ×2 (10:02→20:29)
[2019-02-14] MEDS: ACETAMINOPHEN 325 MG TAB PO PRN ×2 (10:21→20:29)
--- NOTE | 2019-02-14 11:07 | NUR ---
Nutrition Consult/assessment Notes please see attached link for complete assessment Est. Needs ABW [id number] kcal (17-20 kcal/kgBW), 70-77 gms pro (1.0-1.1 gms/kgBW). Will continue to monitor pertinent labs and reassess nutrient need prn Addendum: 02/14/19 at [address] Amended: Links added.
[2019-02-14 13:00] VITALS: BP 159/78
[2019-02-14] MEDS ORDERED: metroNIDAZOLE 500 MG TAB PO SCH (14:00)
[2019-02-14 17:00] VITALS: BP 149/78
--- NOTE | 2019-02-14 19:30 | NUR ---
Opening Shift Note Assumed care of patient, awake and alert. No S/S of distress/SOB. Patient reported MCGILL of 10/10 nonradiating and pounding. will medicate per protocol. Instructed on POC and to call for assist PRN, will continue to monitor for changes Q1hr and PRN. Dressing is C/D/I
[2019-02-14 20:00] VITALS: BP 145/68
[2019-02-14 22:00] VITALS: BP 145/68
[2019-02-15] MEDS: ACETAMINOPHEN 325 MG TAB PO PRN ×3 (04:46→20:36)
[2019-02-15 05:00] VITALS: BP 144/86
[2019-02-15] MEDS: LEVOTHYROXINE SODIUM 50 MCG TAB PO SCH (06:07)
[2019-02-15] MEDS: InsuLIN REG 1unit/0.01ml Soln (100units/ml) SC SCH ×4 (06:31→21:25)
[2019-02-15] MEDS: ACCU-CHEK COMFORT CURVE STRIP VI SCH ×4 (06:31→21:18)
--- NOTE | 2019-02-15 07:23 | NUR ---
rEPORT GIVEN TO DAY SHIFT RN
--- NOTE | 2019-02-15 08:17 | NUR ---
OPENING SHIFT NOTE: PATIENT ASLEEP RESTING IN BED. EVEN AND UNLABORED RESPIRATIONS NOTED. CALL LIGHT WITHIN REACH. INCENTIVE SPIROMETER AT BEDSIDE. BED IN LOWEST LOCKED POSITION. WILL CONTINUE TO MONITOR.
[2019-02-15 09:00] VITALS: BP 131/77
[2019-02-15] MEDS ORDERED: cefTRIAXone 1GM/50ML D5W 50 ML IV SCH (09:00)
[2019-02-15] MEDS: cefTRIAXone 1GM/50ML D5W 50 ML IV SCH (09:57)
[2019-02-15] MEDS: metroNIDAZOLE 500 MG TAB PO SCH ×2 (10:30→21:17)
[2019-02-15] MEDS: ENALAPRIL MALEATE 10 MG TAB PO SCH (10:30)
[2019-02-15] MEDS: ENOXAPARIN SOD 40 MG/0.4 ML SYRINGE SC SCH (10:31)
[2019-02-15] MEDS: FAMOTIDINE (10MG/ML) 2ML VL IV SCH ×2 (10:31→21:17)
[2019-02-15] MEDS: amLODIPine BESYLATE 5 MG TAB PO SCH (10:31)
[2019-02-15 13:00] VITALS: BP 147/84
--- NOTE | 2019-02-15 13:14 | NUR ---
PATIENT AMBULATING IN THE HALLS. NO REPORTS OF PAIN AT THIS TIME.
[2019-02-15 17:00] VITALS: BP 142/81
--- NOTE | 2019-02-15 18:38 | NUR ---
CLOSING SHIFT NOTE: PATIENT RESTING IN BED, FAMILY AT BEDSIDE. PATIENT TOLERATED PUREED DIET. NO COMPLAINTS OF PAIN AT THIS TIME, EVEN AND UNLABORED RESPIRATIONS NOTED. BED IN THE LOWEST LOCKED POSITION, FLOOR FREE OF CLUTTER. ADDRESSED ALL CONCERNS AT THIS TIME. WILL ENDORSE CARE TO NOC RN.,
--- NOTE | 2019-02-15 19:16 | NUR ---
Opening Shift Note Assumed care of patient, awake and alert. No S/S of distress/SOB or pain. Instructed on POC and to call for assist PRN, will continue to monitor for changes Q1hr and PRN. Side rails up x2. Bed locked in lowest position. Call light within reach.
--- NOTE | 2019-02-15 19:18 | NUR ---
CARE ENDORSED TO LAVINIA GALLEGO.
[2019-02-15 22:00] VITALS: BP 146/77
[2019-02-16 05:00] VITALS: BP 131/79
[2019-02-16] MEDS: LEVOTHYROXINE SODIUM 50 MCG TAB PO SCH (06:54)
[2019-02-16] MEDS: InsuLIN REG 1unit/0.01ml Soln (100units/ml) SC SCH ×2 (06:55→12:03)
[2019-02-16] MEDS: ACCU-CHEK COMFORT CURVE STRIP VI SCH ×2 (06:55→11:30)
--- NOTE | 2019-02-16 07:19 | NUR ---
Endorsed care to day shift RN.
[2019-02-16 07:40] LABS: Basophils # (auto) 0.1 uL; Basophils % (auto) 0.9 % (0.0-2.0); Eosinophils # (auto) 0.4 uL; Eosinophils % (auto) 6.2 % (0.0-7.0); Hematocrit 37.3 % (36.0-46.0); Hemoglobin 12.6 g/dL (12.2-16.2); Lymphocytes # (auto) 1.6 uL; Mean Corpuscular Hemoglobin 27.4 pg (28.0-32.0); Mean Corpuscular Hgb Conc. 33.8 g/dL (32.0-36.0); Mean Corpuscular Volume 80.9 fL (80.0-100.0); Monocytes # (auto) 0.6 uL; Monocytes % (auto) 9.9 % (0.0-12.0); Neutrophils # (auto) 3.7 uL; Nucleated Red Blood Cells % 0.1 %; Platelet Count (auto) 222 10^3/uL (140-450); Red Blood Cells 4.61 10^6/uL (4.0-5.20); Red Cell Distribution Width 14.4 % (11.8-14.3); White Blood Cell 6.4 10^3/uL (4.4-10.8)
[2019-02-16 07:51] LABS: Albumin 3.1 g/dL (3.4-5.0); Calcium 8.5 mg/dL (8.5-10.1); Potassium 3.7 mmol/L (3.5-5.1)
[2019-02-16 07:53] LABS: BUN/Creatinine Ratio 19.1
--- NOTE | 2019-02-16 07:55 | NUR ---
OPENING SHIFT NOTE: PATIENT RESTING IN BED. EVEN AND UNLABORED RESPIRATIONS NOTED. BED IN LOWEST LOCKED POSITION. CALL LIGHT WITHIN REACH. WILL CONTINUE TO MONITOR.
[2019-02-16 07:56] LABS: Bilirubin, Total 0.4 mg/dL (0.2-1.0); Total Protein 7.4 g/dL (6.4-8.2)
[2019-02-16 08:24] VITALS: BP 164/87
[2019-02-16 10:07] VITALS: BP 157/82
[2019-02-16] MEDS: metroNIDAZOLE 500 MG TAB PO SCH (10:08)
[2019-02-16] MEDS: amLODIPine BESYLATE 5 MG TAB PO SCH (10:08)
[2019-02-16] MEDS: ENOXAPARIN SOD 40 MG/0.4 ML SYRINGE SC SCH (10:09)
[2019-02-16] MEDS: ACETAMINOPHEN 325 MG TAB PO PRN (10:09)
[2019-02-16] MEDS: ENALAPRIL MALEATE 10 MG TAB PO SCH (10:09)
[2019-02-16] MEDS: FAMOTIDINE (10MG/ML) 2ML VL IV SCH (10:09)
[2019-02-16] MEDS: cefTRIAXone 1GM/50ML D5W 50 ML IV SCH (10:16)
[2019-02-16 12:05] VITALS: BP 156/89
--- NOTE | 2019-02-16 13:39 | NUR ---
DISCHARGE NOTE: PATIENT DISCHARGED HOME. PATIENT LEFT WITH ALL BELONGINGS. IV REMOVED, MANUAL PRESSURE APPLIED. ALL EDUCATION MATERIALS GIVEN TO PATIENT. PATIENT LEFT WITH ALL FOOD ITEMS BROUGHT FROM HOME AND ABDOMINAL BINDER IN PLACE. EVEN AND UNLABORED RESPIRATIONS NOTED NO SIGNS OF DISTRESS. PATIENT REQUEST TO AMBULATE OUT TO PRIVATE AUTO.
== END 2019-02-16 13:38 | disposition home or self-care (01) | DRG 228 ==
LOC: ER 11:07 → OVERFLOW 11:08 → CENTRAL 17:38
PROVIDERS: ADMIT Nurse Practitioner Acute Care; ATTEND Internal Medicine Nephrology
PROC: 0D9670Z Drainage of Stomach with Drainage Device, Via Natural or Artificial Opening (ICD-10-PCS; 2019-02-12)
PROC: 0WUF0JZ Supplement Abdominal Wall with Synthetic Substitute, Open Approach (ICD-10-PCS; principal; 2019-02-13 11:22)
DX: K42.0 Umbilical hernia with obstruction, without gangrene (principal); E11.65 Type 2 diabetes mellitus with hyperglycemia; K43.6 Other and unspecified ventral hernia with obstruction, without gangrene; E66.01 Morbid (severe) obesity due to excess calories; I10 Essential (primary) hypertension; E87.1 Hypo-osmolality and hyponatremia; E03.9 Hypothyroidism, unspecified; Z90.49 Acquired absence of other specified parts of digestive tract; Z68.38 Body mass index [BMI] 38.0-38.9, adult; Z79.84 Long term (current) use of oral hypoglycemic drugs; Z98.51 Tubal ligation status; Z82.61 Family history of arthritis; Z83.3 Family history of diabetes mellitus; Z82.49 Family history of ischemic heart disease and other diseases of the circulatory system; Z79.899 Other long term (current) drug therapy
CPT/HCPCS: 36415; 71045; 71046; 74177; 80048; 80053; 81001; 82962; 83036; 83690; 83735; 84443; 84702; 85025; 85610; 85730; 86850; 86900; 86901; 87040; 88302; 93005; 96361; 96374; 96375; C1781; G0378; J0330; J0690; J0696; J1815; J2250; J2405; J2704; J3490

== ENCOUNTER 2022-03-15 13:21 | Emergency (ER) | payer MEDICAID ==
[~2022-03-15] VITALS: Ht 154.9 cm; Wt 89.7 kg
[~2022-03-15 13:21] MED LIST changes: +ALOG1TAB2 PO; -ENAL20TA PO; +ENAL20TA8 PO; +ERGO2000 PO; -SITA100T7 PO
[2022-03-15] MEDS ORDERED: cloNIDine HCL 0.1 MG TAB ONE ×2 (14:10→14:13)
[2022-03-15] MEDS ORDERED: cloNIDine HCL 0.1 MG TAB PO ONE (14:15)
[2022-03-15 14:42] LABS: Basophils # (auto) 0 10 ^3/uL (0-0.2); Eosinophils # (auto) 0 10 ^3/uL (0-0.8); Eosinophils % (auto) 0.4 % (0.0-7.0); Hemoglobin 15.8 g/dL (12.2-16.2); Monocytes # (auto) 0.4 10 ^3/uL (0-1.3); Neutrophils # (auto) 5.1 10 ^3/uL (1.6-8.6)
[2022-03-15 14:44] LABS: Basophils % (auto) 0.6 % (0.0-2.0); Hematocrit 48.1 % (36.0-46.0); Lymphocytes # (auto) 1.4 10 ^3/uL (0.4-5.4); Lymphocytes % (auto) 20.6 % (10.0-50.0); Mean Corpuscular Hemoglobin 26.6 pg (28.0-32.0); Mean Corpuscular Hgb Conc. 32.8 g/dL (32.0-36.0); Mean Corpuscular Volume 81.1 fL (80.0-100.0); Monocytes % (auto) 5.7 % (0.0-12.0); Neutrophils % (auto) 72.7 % (37.0-80.0); Red Blood Cells 5.93 10^6/uL (4.0-5.20); Red Cell Distribution Width 14.5 % (11.8-14.3)
[2022-03-15 14:51] LABS: Albumin 4.1 g/dL (3.4-5.0); Magnesium 1.9 mg/dL (1.6-2.6); Potassium 3.9 mmol/L (3.5-5.1)
[2022-03-15 14:58] LABS: BUN/Creatinine Ratio 34.5; Bilirubin, Total 0.6 mg/dL (0.2-1.0); Calcium 9.3 mg/dL (8.5-10.1); Total Protein 8.3 g/dL (6.4-8.2)
[2022-03-15 17:37] VITALS: BP 145/94
== END 2022-03-15 17:46 | disposition home or self-care (01) ==
LOC: ER 13:21
DX: I16.0 Hypertensive urgency (principal); I10 Essential (primary) hypertension; R51.9 Headache, unspecified; E11.9 Type 2 diabetes mellitus without complications; Z90.49 Acquired absence of other specified parts of digestive tract; Z98.51 Tubal ligation status
CPT/HCPCS: 36415; 71045; 80053; 82962; 83735; 83880; 84484; 85025; 93005

== ENCOUNTER 2023-03-22 14:14 | Inpatient (IN) | payer MEDICAID ==
[~2023-03-22] VITALS: Ht 154.9 cm; Wt 85.0 kg
[~2023-03-22 14:14] MED LIST changes: +ENAL1TAB48 PO; -ENAL20TA8 PO
[2023-03-22] MEDS ORDERED: SODIUM CHLORIDE 0.9% 1,000 ML IV ONE (15:00)
[2023-03-22] MEDS ORDERED: METOCLOPRAMIDE HCL 5MG/ml INJ 2ml VIAL IV ONE (15:00)
[2023-03-22] MEDS ORDERED: cloNIDine HCL 0.1 MG TAB PO ONE (15:00)
[2023-03-22 15:18] LABS: Basophils # (auto) 0.1 10 ^3/uL (0-0.2); Basophils % (auto) 0.6 % (0.0-2.0); Eosinophils # (auto) 0 10 ^3/uL (0-0.8); Eosinophils % (auto) 0.2 % (0.0-7.0); Hemoglobin 14.1 g/dL (12.2-16.2); Lymphocytes # (auto) 1.7 10 ^3/uL (0.4-5.4); Lymphocytes % (auto) 19.9 % (10.0-50.0); Mean Corpuscular Hemoglobin 27.9 pg (28.0-32.0); Mean Corpuscular Hgb Conc. 32.8 g/dL (32.0-36.0); Mean Corpuscular Volume 85.1 fL (80.0-100.0); Monocytes # (auto) 0.7 10 ^3/uL (0-1.3); Monocytes % (auto) 8.2 % (0.0-12.0); Neutrophils # (auto) 5.9 10 ^3/uL (1.6-8.6); Neutrophils % (auto) 71.1 % (37.0-80.0); Red Blood Cells 5.06 10^6/uL (4.0-5.20); Red Cell Distribution Width 14.3 % (11.8-14.3); White Blood Cell 8.3 10^3/uL (4.4-10.8)
[2023-03-22 15:27] LABS: Urine Bacteria MOD /hpf (None Seen); Urine Blood 1+ /uL (Negative); Urine Clarity HAZY (Clear); Urine Color Colorless (Yellow); Urine Mucus FEW (None Seen); Urine Protein, UAD 2+ (Negative); Urine Specific Gravity 1.008 (1.001-1.035); Urine Urobilinogen Normal (Negative); Urine WBC 127 /hpf (0 - 5)
[2023-03-22 15:41] LABS: Alanine Aminotransferase 22 U/L (7-40); Alkaline Phosphatase 116 U/L (46-116); Anion Gap 8 (5-15); Aspartate Aminotransferase 15 U/L (13-40); BUN/Creatinine Ratio 13.4 (10.0-20.0); Blood Urea Nitrogen 9 mg/dL (9-23); Calcium 9.8 mg/dL (8.7-10.4); Carbon Dioxide 27 mmol/L (20-30); Chloride 101 mmol/L (98-107); Glucose 199 mg/dL (74-106); Potassium 4.1 mmol/L (3.5-5.1); Sodium 136 mmol/L (136-145)
[2023-03-22 15:42] LABS: Albumin 4.7 g/dL (3.2-4.8); Bilirubin, Total 0.6 mg/dL (0.2-1.0); Total Protein 7.7 g/dL (5.7-8.2)
[2023-03-22] MEDS ORDERED: CEFTRIAXONE SODIUM 2 GM in D5W 5% 100 ML IV ONE (15:45)
[2023-03-22] MEDS ORDERED: KETOROLAC TROMETH 30 MG/ML 1ML VIAL IV ONE (16:00)
[2023-03-22] MEDS ORDERED: ONDANSETRON HCL 4 MG/2 ML VIAL IV PRN (16:15)
[2023-03-22] MEDS ORDERED: HYDROcodone-ACET 5/325MG TAB PO PRN (16:15)
[2023-03-22] MEDS ORDERED: MORPHINE SULFATE INJ 2 MG/ml SYRG IV PRN (16:15)
[2023-03-22] MEDS ORDERED: DEXTROSE (50%) 50ML SYRG IV PRN (16:15)
[2023-03-22] MEDS ORDERED: DOCUSATE SOD 100 MG CAP PO PRN (16:15)
[2023-03-22] MEDS ORDERED: ACETAMINOPHEN 325 MG TAB PO PRN (16:15)
[2023-03-22] MEDS: ACCU-CHEK COMFORT CURVE STRIP VI SCH ×2 (18:15→21:40)
[2023-03-22] MEDS: InsuLIN REG 1unit/0.01ml Soln (100units/ml) SC SCH ×2 (18:53→21:48)
[2023-03-22 19:35] VITALS: PULSE 73; RESP 16; O2SAT 97
[2023-03-23] VITALS (7 sets, daily range): BP systolic 145–162; BP diastolic 62–73; PULSE 67–93; RESP 15–20; TEMP 98–98.6; O2SAT 96–100
[2023-03-23 04:52] LABS: Alanine Aminotransferase 18 U/L (7-40); Albumin 3.7 g/dL (3.2-4.8); Alkaline Phosphatase 86 U/L (46-116); Anion Gap 8 (5-15); Aspartate Aminotransferase 22 U/L (13-40); BUN/Creatinine Ratio 9.8 (10.0-20.0); Blood Urea Nitrogen 6 mg/dL (9-23); Calcium 8.8 mg/dL (8.7-10.4); Carbon Dioxide 24 mmol/L (20-30); Chloride 105 mmol/L (98-107); Glucose 186 mg/dL (74-106); Potassium 3.8 mmol/L (3.5-5.1); Sodium 137 mmol/L (136-145)
[2023-03-23 04:53] LABS: Bilirubin, Total 0.3 mg/dL (0.2-1.0); Total Protein 6.4 g/dL (5.7-8.2)
[2023-03-23 05:05] LABS: Basophils # (auto) 0.1 10 ^3/uL (0-0.2); Eosinophils # (auto) 0.1 10 ^3/uL (0-0.8); Eosinophils % (auto) 1.1 % (0.0-7.0); Hematocrit 37.2 % (36.0-46.0); Hemoglobin 12.1 g/dL (12.2-16.2); Lymphocytes # (auto) 2.1 10 ^3/uL (0.4-5.4); Lymphocytes % (auto) 32.7 % (10.0-50.0); Mean Corpuscular Hemoglobin 28.1 pg (28.0-32.0); Mean Corpuscular Hgb Conc. 32.4 g/dL (32.0-36.0); Mean Corpuscular Volume 86.6 fL (80.0-100.0); Monocytes # (auto) 0.6 10 ^3/uL (0-1.3); Monocytes % (auto) 9.2 % (0.0-12.0); Neutrophils # (auto) 3.6 10 ^3/uL (1.6-8.6); Nucleated Red Blood Cells % 0.1 %; Red Blood Cells 4.29 10^6/uL (4.0-5.20); Red Cell Distribution Width 14.4 % (11.8-14.3); White Blood Cell 6.5 10^3/uL (4.4-10.8)
[2023-03-23] MEDS: LEVOTHYROXINE SODIUM 25 MCG TAB PO SCH (06:34)
[2023-03-23] MEDS: LEVOTHYROXINE SODIUM 100 MCG TAB PO SCH (06:34)
[2023-03-23] MEDS: ENALAPRIL MALEATE 10 MG TAB PO SCH (06:43)
[2023-03-23] MEDS: InsuLIN REG 1unit/0.01ml Soln (100units/ml) SC SCH ×4 (06:45→22:16)
[2023-03-23] MEDS: ACCU-CHEK COMFORT CURVE STRIP VI SCH ×4 (06:45→22:15)
[2023-03-23] MEDS: cefTRIAXone 1GM/50ML D5W 50 ML IV SCH (09:26)
[2023-03-23] MEDS ORDERED: CLOTLOT TOP (09:51)
[2023-03-23] MEDS ORDERED: DAPA1TAB4 PO (09:52)
[2023-03-23] MEDS ORDERED: CLON0.1T PO (09:52)
[2023-03-23] MEDS: LABETALOL HCL 5 MG/ML 4ML SYRINGE IV PRN ×2 (13:02→15:34)
[2023-03-23] MEDS ORDERED: NIFEdipine ER 30 MG TAB PO ONE (15:45)
[2023-03-24] VITALS (7 sets, daily range): BP systolic 125–166; BP diastolic 59–80; PULSE 60–110; RESP 16–22; TEMP 97.2–98.4; O2SAT 95–100
[2023-03-24] MEDS: ACCU-CHEK COMFORT CURVE STRIP VI SCH ×4 (06:33→22:12)
[2023-03-24] MEDS: LEVOTHYROXINE SODIUM 100 MCG TAB PO SCH (06:33)
[2023-03-24] MEDS: ENALAPRIL MALEATE 10 MG TAB PO SCH (06:33)
[2023-03-24] MEDS: LEVOTHYROXINE SODIUM 25 MCG TAB PO SCH (06:33)
[2023-03-24] MEDS: InsuLIN REG 1unit/0.01ml Soln (100units/ml) SC SCH ×4 (06:36→22:34)
[2023-03-24] MEDS: NIFEdipine ER 30 MG TAB PO SCH (10:09)
[2023-03-24] MEDS: cefTRIAXone 1GM/50ML D5W 50 ML IV SCH (10:10)
[2023-03-24] MEDS: MEROPENEM 1GM IVPB 100 ML IV SCH ×2 (15:57→22:11)
[2023-03-24] MEDS: LABETALOL HCL 5 MG/ML 4ML SYRINGE IV PRN (22:12)
[2023-03-25] VITALS (7 sets, daily range): BP systolic 120–155; BP diastolic 51–92; PULSE 69–120; RESP 16–51; TEMP 97.8–98.5; O2SAT 95–98
[2023-03-25] MEDS ORDERED: MELATONIN 5 MG TAB PO ONE ×3 (01:00→22:00)
[2023-03-25] MEDS: LEVOTHYROXINE SODIUM 25 MCG TAB PO SCH (06:09)
[2023-03-25] MEDS: MEROPENEM 1GM IVPB 100 ML IV SCH ×3 (06:09→22:15)
[2023-03-25] MEDS: LEVOTHYROXINE SODIUM 100 MCG TAB PO SCH (06:09)
[2023-03-25] MEDS: ENALAPRIL MALEATE 10 MG TAB PO SCH (06:10)
[2023-03-25] MEDS: InsuLIN REG 1unit/0.01ml Soln (100units/ml) SC SCH ×4 (06:11→22:16)
[2023-03-25] MEDS: ACCU-CHEK COMFORT CURVE STRIP VI SCH ×4 (06:16→22:08)
[2023-03-25 06:27] LABS: Basophils # (auto) 0 10 ^3/uL (0-0.2); Basophils % (auto) 0.9 % (0.0-2.0); Eosinophils # (auto) 0.1 10 ^3/uL (0-0.8); Eosinophils % (auto) 2.1 % (0.0-7.0); Hematocrit 39.7 % (36.0-46.0); Hemoglobin 12.9 g/dL (12.2-16.2); Lymphocytes # (auto) 1.9 10 ^3/uL (0.4-5.4); Lymphocytes % (auto) 37.1 % (10.0-50.0); Mean Corpuscular Hgb Conc. 32.5 g/dL (32.0-36.0); Mean Corpuscular Volume 86.1 fL (80.0-100.0); Monocytes # (auto) 0.5 10 ^3/uL (0-1.3); Neutrophils # (auto) 2.5 10 ^3/uL (1.6-8.6); Neutrophils % (auto) 49.9 % (37.0-80.0); Nucleated Red Blood Cells % 0.2 %; Red Blood Cells 4.61 10^6/uL (4.0-5.20); Red Cell Distribution Width 14.2 % (11.8-14.3); White Blood Cell 5.1 10^3/uL (4.4-10.8)
[2023-03-25 07:49] LABS: Chloride 105 mmol/L (98-107); Potassium 3.9 mmol/L (3.5-5.1); Sodium 141 mmol/L (136-145)
[2023-03-25 07:50] LABS: Anion Gap 7 (5-15); Calcium 9.2 mg/dL (8.5-10.1); Carbon Dioxide 29 mmol/L (20-30)
[2023-03-25 07:55] LABS: Glucose 181 mg/dL (74-106)
[2023-03-25 07:56] LABS: Blood Urea Nitrogen 11 mg/dL (9-23)
[2023-03-25] MEDS: NIFEdipine ER 30 MG TAB PO SCH (09:38)
[2023-03-26 05:00] VITALS: BP 140/60; PULSE 85; RESP 18; TEMP 98.2; O2SAT 98
[2023-03-26] MEDS: MEROPENEM 1GM IVPB 100 ML IV SCH ×2 (06:29→14:00)
[2023-03-26] MEDS: LEVOTHYROXINE SODIUM 100 MCG TAB PO SCH (06:29)
[2023-03-26] MEDS: LEVOTHYROXINE SODIUM 25 MCG TAB PO SCH (06:29)
[2023-03-26] MEDS: ACCU-CHEK COMFORT CURVE STRIP VI SCH ×2 (06:30→10:25)
[2023-03-26] MEDS: ENALAPRIL MALEATE 10 MG TAB PO SCH (06:30)
[2023-03-26] MEDS: InsuLIN REG 1unit/0.01ml Soln (100units/ml) SC SCH ×2 (06:31→12:30)
[2023-03-26 08:00] VITALS: PULSE 78; PULSE 83; RESP 20; O2SAT 95
[2023-03-26] MEDS: NIFEdipine ER 30 MG TAB PO SCH (10:25)
[2023-03-26] MEDS ORDERED: NITR-52 PO (10:38)
[2023-03-26 10:57] VITALS: PULSE 9; RESP 23; TEMP 98
[2023-03-26] MEDS: LABETALOL HCL 5 MG/ML 4ML SYRINGE IV PRN (12:25)
[2023-03-26 14:02] VITALS: BP 142/68; PULSE 64; RESP 18; TEMP 97.9; O2SAT 95
== END 2023-03-26 14:50 | disposition home or self-care (01) | DRG 463 ==
LOC: ER 14:14 → UNDOADMIN 16:14 → TELE 16:14 → OVERFLOW 16:16 → CENTRAL 03-23 09:48 → TELE-CENTR 03-23 13:12
PROVIDERS: ADMIT Nurse Practitioner Family; ATTEND Internal Medicine
DX: N10 Acute pyelonephritis (principal); B96.20 Unspecified Escherichia coli [E. coli] as the cause of diseases classified elsewhere; E03.9 Hypothyroidism, unspecified; E66.9 Obesity, unspecified; E11.65 Type 2 diabetes mellitus with hyperglycemia; N20.0 Calculus of kidney; I16.0 Hypertensive urgency; I10 Essential (primary) hypertension; Z68.35 Body mass index [BMI] 35.0-35.9, adult; Z90.49 Acquired absence of other specified parts of digestive tract; Z98.51 Tubal ligation status; Z71.3 Dietary counseling and surveillance
CPT/HCPCS: 36415; 74176; 80048; 80053; 81001; 82962; 85025; 87086; 87088; 87186; G0378; J0696; J1815; J1885; J2185; J3490; J7060

== ENCOUNTER 2024-07-24 08:27 | Day surgery (SDC) | payer MEDICAID, OTHER ==
[~2024-07-24] VITALS: Ht 154.9 cm; Wt 79.8 kg
[~2024-07-24 08:27] MED LIST changes: -ENAL1TAB48 PO; -GLIP5TAB12 PO; +HYDR25TA5 PO; -LEVO125T7 PO; +LEVO150C3 PO; +SEMA3TAB2 PO
[2024-07-24] MEDS ORDERED: KETAMINE 50mg/ML 10ml Vial (500mg/10ml) IV ONE (08:28)
[2024-07-24] MEDS ORDERED: MIDAZOLAM HCL 2MG/2ML 2ml VIAL (1mg/ml) ONE (10:42)
[2024-07-24] MEDS ORDERED: PROPOFOL 10 MG/ML 20 ML IV ONE (10:42)
[2024-07-24 11:28] VITALS: PULSE 106; RESP 12; TEMP 97.3; O2SAT 97
--- NOTE | 2024-07-24 11:28 | DVHHP2 ---
GI H&P Pre-Op Assessment Date: 07/24/24 Chief complaint: colon cancer screening HPI: per clinic note Past medical history: per clinic note Past surgical history: per clinic note Family history: per clinic note Physical exam: General: NAD, AAOX3 HEENT: PERRL, no scleral icterus, normal hearing, gums without lesions or bleeding, oropharynx clear without erythema or exudate. Neck: Supple without enlargement of the thyroid, or lymphadenopathy. Chest: Normal size and shape, no tenderness, lung richard clear to auscultation and percussion, nonlabored breathing. Heart: RRR, no murmur Abdomen: non-distended, no tenderness to palpation, +BS, no hepatosplenomegaly Extremities: no edema Neurological: CN II-XII intact, sensation intact in all extremities, 5+ strength in all extremities Skin: No rashes, No jaundice Assessment: - colon cancer screening Plan: - Colonoscopy - Risks (bleeding, infection, perforation, reaction to sedation medications and cardiopulmonary arrest) and benefit of the procedure were explained to patient. Patient agrees to undergo the procedure. DIXON ROCHE MD Jul 24, 2024 11:28
--- NOTE | 2024-07-24 11:29 | DVHDS2 ---
Physician Discharge Progress N Final Diagnosis: Internal hemorrhoids Operations or Procedures: Operations or Procedures Colonoscopy Condition on Discharge: Good Disposition: Home Discharge Instructions: Diet: Regular Activity: No Restrictions, As Tolerated Medications: Resume previous home medications Follow Up Care: Discharge Statement: "Patient was advised to return to the ER or call 911 if any headaches, dizziness, shortness of breath, chest pain, abdominal pain, bleeding, fevers, or worsening of medical condition. Patient was counseled about treatment plan, medications, possible side effects, patientverbalized understanding. All questions were answered to the best of my ability. This discharge took greater then 30 minutes in planning, reviewing documentation, counseling the patient, and discussing with other team members." DIXON ROCHE MD Jul 24, 2024 11:29
--- NOTE | 2024-07-24 11:29 | DVHOP2 ---
Operative Report DATE OF OPERATION: 07/24/24 PROCEDURE: Colonoscopy. PREOPERATIVE INDICATION: The patient is a 59 -year-old female undergoing colonoscopy for colon cancer screening. POSTOPERATIVE DIAGNOSES: 1. Internal hemorrhoids PROCEDURE PERFORMED BY: Kamran Stauffer M.D. SCOPE: Olympus videocolonoscope. ASA CLASS: 2 PREOPERATIVE MEDICATIONS: MAC with Dr Hernandez PROCEDURE IN DETAIL: After obtaining an informed consent, the patient was placed on left lateral decubitus position. She was then sedated with the above medications. A rectal examination was performed that was normal. The c olonoscope was then passed through the anus into the rectosigmoid and through the descending, transverse, and ascending colon up to the cecum with visualization of the appendiceal orifice, base of the cecum and the ileocecal valve. No mass or polyp was observed. There were internal hemorrhoids. The colonoscope was then withdrawn. The patient tolerated the procedure well without difficulty. WITHDRAWAL TIME: 6 minutes QUALITY OF THE PREP: [place] Bowel Prep score: 7 COMPLICATIONS : None SPECIMENS: None DISPOSITION: D/C to home PLAN: 1. Repeat colonoscopy in 10 years for colon cancer screening. KAMRAN STAUFFER MD Jul 24, 2024 11:29
[2024-07-24] MEDS ORDERED: ACCU-CHEK COMFORT CURVE STRIP VI ONE (11:45)
[2024-07-24 11:51] VITALS: BP 158/77; PULSE 107; RESP 19; O2SAT 95
== END 2024-07-24 12:45 | disposition home or self-care (01) ==
LOC: GI 08:27
PROVIDERS: ATTEND Internal Medicine Gastroenterology
DX: Z12.11 Encounter for screening for malignant neoplasm of colon (principal); K64.8 Other hemorrhoids; I10 Essential (primary) hypertension; E11.9 Type 2 diabetes mellitus without complications; E66.9 Obesity, unspecified; E03.9 Hypothyroidism, unspecified; E78.5 Hyperlipidemia, unspecified; Z68.32 Body mass index [BMI] 32.0-32.9, adult; Z79.84 Long term (current) use of oral hypoglycemic drugs; Z79.890 Hormone replacement therapy; Z79.899 Other long term (current) drug therapy; Z86.2 Personal history of diseases of the blood and blood-forming organs and certain disorders involving the immune mechanism
CPT/HCPCS: 45378; 82962; J2250; J2704; J7030